=== PATIENT | female | born 1950 | race Caucasian/White ===

== ENCOUNTER 2019-11-17 11:55 | Inpatient (IN) | payer MEDICARE, OTHER ==
[~2019-11-17] VITALS: Ht 157.5 cm; Wt 55.3 kg
[2019-11-17 12:28] LABS: BASOPHILS % (AUTO) 0.4 % (0.0-2.0); EOSINOPHILS # (AUTO) 0.1 K/uL (0.0-0.7); EOSINOPHILS % (AUTO) 2.4 % (0.0-7.0); HEMATOCRIT 38.1 % (31.2-41.9); HEMOGLOBIN 12.9 g/dL (10.9-14.3); LYMPHOCYTES # (AUTO) 2.4 K/uL (20.0-40.0); LYMPHOCYTES % (AUTO) 39.1 % (20.5-51.5); MEAN CORPUSCULAR HEMOGLOBIN 31.1 uug (24.7-32.8); MEAN CORPUSCULAR HGB CONC 34 g/dL (32.3-35.6); MONOCYTES # (AUTO) 0.7 K/uL (2.0-10.0); MONOCYTES % (AUTO) 11.3 % (0.0-11.0); NEUTROPHILS # (AUTO) 2.9 K/uL (1.8-8.9); NEUTROPHILS % (AUTO) 46.8 % (38.5-71.5); PLATELET COUNT (AUTO) 213 K/uL (179-408); RED BLOOD CELL COUNT(AUTO) 4.14 MIL/uL (3.63-4.92); WHITE BLOOD COUNT (AUTO) 6.1 K/uL (3.8-11.8)
[2019-11-17 12:38] LABS: CARBON DIOXIDE 29 mmol/L (21-32); CHLORIDE 103 mmol/L (98-107); CREATININE 0.6 mg/dL (0.6-1.3); GLUCOSE 75 mg/dL (74-106); POTASSIUM 4.5 mmol/L (3.5-5.1); UREA NITROGEN, BLOOD 25 mg/dL (7-18)
[2019-11-17 12:44] LABS: ALANINE AMINOTRANSFERASE 24 U/L (14-59); ALKALINE PHOSPHATASE 92 U/L (50-136); ASPARTATE AMINOTRANSFERASE 15 U/L (15-37); BILIRUBIN,DIRECT 0.1 mg/dL (0.0-0.2); BILIRUBIN,TOTAL 0.4 mg/dL (0.2-1.0); TOTAL PROTEIN, SERUM 7.1 g/dL (6.4-8.2)
[2019-11-17 12:47] LABS: ACETAMINOPHEN < 2.0 ug/mL (10-30)
[2019-11-17 12:48] LABS: ETHANOL < 3 MG/DL (0-0)
[2019-11-17] MEDS ORDERED: FERR325T24 PO (12:53)
[2019-11-17] MEDS ORDERED: QUET100T PO (12:53)
[2019-11-17] MEDS ORDERED: OXYB5TAB16 PO (12:53)
[2019-11-17] MEDS ORDERED: FAMO40TA7 PO (12:53)
[2019-11-17] MEDS ORDERED: MULT-213 PO (12:53)
[2019-11-17] MEDS ORDERED: LORA10TA7 PO (12:53)
[2019-11-17] MEDS ORDERED: LACT1CAP26 PO (12:53)
[2019-11-17] MEDS ORDERED: GLYC30DR4 OP (12:54)
[2019-11-17] MEDS ORDERED: QUET200T PO (12:54)
[2019-11-17] MEDS ORDERED: GEMF600T5 PO (12:54)
[2019-11-17] MEDS ORDERED: DIVA-76 PO (12:54)
[2019-11-17] MEDS ORDERED: CHOL200026 PO (12:54)
[2019-11-17] MEDS ORDERED: METO25TA6 PO (12:54)
[2019-11-17] MEDS ORDERED: GABA600T12 PO (12:54)
[2019-11-17] MEDS ORDERED: NICO-670 TD (12:54)
[2019-11-17] MEDS ORDERED: ACET1TAB12 PO (12:54)
[2019-11-17] MEDS ORDERED: ACET325T53 PO (12:54)
[2019-11-17 13:06] LABS: *BILIRUBIN,URIN NEGATIVE (NEGATIVE); *CLARITY,URINE CLOUDY (CLEAR); *COLOR,URINE YELLOW (YELLOW); *KETONES,URINE NEGATIVE (NEGATIVE); *UROBILINOGEN,URINE 0.2 E.U./dl (NORMAL); LEUKOCYTE ESTERASE ,URINE 2+ (NEGATIVE); NITRITE, URINE POSITIVE (NEGATIVE); UGLUCOSE NEGATIVE (NEGATIVE)
[2019-11-17 13:08] LABS: *BLOOD, URINE TRACE (NEGATIVE)
[2019-11-17] MEDS ORDERED: CEphaleXIN 500 MG CAPSULE ONE (13:13)
[2019-11-17 13:14] LABS: BACTERIA,URINE MANY /HPF (NONE SEEN); WBC,URINE TNTC /HPF (0-3)
[2019-11-17 13:15] LABS: *AMPHETAMINE, URINE NEGATIVE (NEGATIVE); *BARBITURATE, URINE NEGATIVE (NEGATIVE); *CANNABINOID, URINE NEGATIVE (NEGATIVE); *COCCAINE, URINE NEGATIVE (NEGATIVE); *OPIATE, URINE POSITIVE (NEGATIVE); *PHENCYCLIDINE SCREEN,URINE NEGATIVE (NEGATIVE); SQUAMOUS EPITHELIAL CELL,UR FEW /HPF (NONE SEEN)
[2019-11-17] MEDS ORDERED: CEphaleXIN 500 MG CAPSULE PO ONE (13:15)
[2019-11-17 13:30] VITALS: BP 95/67
[2019-11-17] MEDS ORDERED: MAGNESIUM HYDROXIDE 30 ML LIQUID UDC PO PRN (13:45)
[2019-11-17] MEDS ORDERED: MAG HYDROX/AL HYDROX/SIMETH 30 ML LIQUID UDC PO PRN (13:45)
[2019-11-17] MEDS ORDERED: BLOOD SUGAR DIAGNOSTIC 1 EACH STRIP VI ONE (13:45)
[2019-11-17] MEDS: ACETAMINOPHEN 325 MG TABLET PO PRN (15:00)
[2019-11-17] MEDS: LORAZEPAM 0.5 MG TABLET PO PRN (15:00)
[2019-11-17 16:13] VITALS: BP 115/69
[2019-11-17] MEDS: GEMFIBROZIL 600 MG TABLET PO SCH (16:24)
[2019-11-17] MEDS: GABAPENTIN 300 MG CAPSULE PO SCH (16:26)
[2019-11-17] MEDS: POLYVINYL ALCOHOL OPHT DROPS 15 ML BOTTLE EACHEYE SCH (16:26)
[2019-11-17] MEDS ORDERED: [UNRECOGNIZED DRUG - OTHER] PO SCH (17:00)
[2019-11-17] MEDS ORDERED: [UNRECOGNIZED DRUG - OTHER] OP SCH (17:00)
[2019-11-17] MEDS ORDERED: PROPYLENE GLYCOL OP SCH (17:00)
[2019-11-17] MEDS ORDERED: GLYCERIN OP SCH (17:00)
[2019-11-17] MEDS ORDERED: Medication Not On Formulary EA (Gabapentin 600 MG) PO SCH (17:00)
[2019-11-17] MEDS ORDERED: CHOLECALCIFEROL 1000 UNIT PO SCH (17:00)
[2019-11-17] MEDS: HALOPERIDOL 2 MG TABLET PO SCH (18:49)
[2019-11-17] MEDS: BENZTROPINE MESYLATE 0.5 MG TABLET PO SCH (18:49)
[2019-11-17] MEDS: DIVALPROEX 250 MG TABLET.DR PO SCH (18:49)
[2019-11-17 20:00] VITALS: BP 101/56
[2019-11-17] MEDS: METOPROLOL TARTRATE 25 MG TABLET PO SCH (21:00)
[2019-11-17] MEDS: CEphaleXIN 500 MG CAPSULE PO SCH (21:34)
[2019-11-18 07:30] VITALS: BP 110/65
[2019-11-18] MEDS: POLYVINYL ALCOHOL OPHT DROPS 15 ML BOTTLE EACHEYE SCH ×2 (08:25→16:31)
[2019-11-18] MEDS: DIVALPROEX 250 MG TABLET.DR PO SCH ×3 (08:25→16:31)
[2019-11-18] MEDS: HALOPERIDOL 2 MG TABLET PO SCH ×3 (08:26→16:31)
[2019-11-18] MEDS: OXYBUTYNIN CHLORIDE 5 MG TABLET PO SCH (08:26)
[2019-11-18] MEDS: BENZTROPINE MESYLATE 0.5 MG TABLET PO SCH ×3 (08:26→16:31)
[2019-11-18] MEDS: CEphaleXIN 500 MG CAPSULE PO SCH ×3 (08:26→22:30)
[2019-11-18] MEDS: GEMFIBROZIL 600 MG TABLET PO SCH ×2 (08:27→16:31)
[2019-11-18] MEDS: GABAPENTIN 300 MG CAPSULE PO SCH ×3 (08:27→16:31)
[2019-11-18] MEDS: FAMOTIDINE 20 MG TABLET PO SCH (08:32)
[2019-11-18] MEDS: METOPROLOL TARTRATE 25 MG TABLET PO SCH ×3 (08:32→22:30)
[2019-11-18] MEDS: FERROUS SULFATE 325 MG TABEC PO SCH (08:32)
[2019-11-18] MEDS: MULTIVIT, IRON, MIN NO. 8, FA TABLET PO SCH (08:33)
[2019-11-18] MEDS: CHOLECALCIFEROL 1,000 UNIT TABLET PO SCH (08:33)
[2019-11-18] MEDS: NICOTINE 21 MG/24HR PATCH TD SCH (08:35)
[2019-11-18] MEDS ORDERED: Medication Not On Formulary EA (Famotidine 40 MG) PO SCH (09:00)
[2019-11-18] MEDS ORDERED: Medication Not On Formulary EA (Multivitamins W-Minerals (Multivitamin With Minerals) 1 PO SCH (09:00)
[2019-11-18 16:00] VITALS: BP 121/57
[2019-11-18 20:50] VITALS: BP 119/62
[2019-11-18] MEDS: TEMAZEPAM 7.5 MG CAPSULE PO PRN (23:33)
[2019-11-19 07:30] VITALS: BP 100/49
[2019-11-19] MEDS: GEMFIBROZIL 600 MG TABLET PO SCH ×2 (08:01→16:40)
[2019-11-19] MEDS: MULTIVIT, IRON, MIN NO. 8, FA TABLET PO SCH (08:01)
[2019-11-19] MEDS: OXYBUTYNIN CHLORIDE 5 MG TABLET PO SCH (08:01)
[2019-11-19] MEDS: DIVALPROEX 250 MG TABLET.DR PO SCH ×3 (08:01→16:41)
[2019-11-19] MEDS: POLYVINYL ALCOHOL OPHT DROPS 15 ML BOTTLE EACHEYE SCH ×2 (08:01→16:40)
[2019-11-19] MEDS: GABAPENTIN 300 MG CAPSULE PO SCH ×3 (08:01→16:38)
[2019-11-19] MEDS: FAMOTIDINE 20 MG TABLET PO SCH (08:01)
[2019-11-19] MEDS: FERROUS SULFATE 325 MG TABEC PO SCH (08:02)
[2019-11-19] MEDS: BENZTROPINE MESYLATE 0.5 MG TABLET PO SCH ×3 (08:02→16:39)
[2019-11-19] MEDS: HALOPERIDOL 2 MG TABLET PO SCH ×2 (08:02→12:00)
[2019-11-19] MEDS: NICOTINE 21 MG/24HR PATCH TD SCH (08:02)
[2019-11-19] MEDS: CHOLECALCIFEROL 1,000 UNIT TABLET PO SCH (08:02)
[2019-11-19 15:09] VITALS: BP 93/49
[2019-11-19] MEDS: HALOPERIDOL 1 MG TABLET PO SCH (16:42)
[2019-11-19] MEDS ORDERED: GABAPENTIN 300 MG CAPSULE PO SCH (17:00)
[2019-11-19] MEDS: CEphaleXIN 500 MG CAPSULE PO SCH (20:02)
[2019-11-19] MEDS: METOPROLOL TARTRATE 25 MG TABLET PO SCH (20:04)
[2019-11-19] MEDS: ACETAMINOPHEN/CODEINE 300-30 MG TABLET PO PRN (23:10)
[2019-11-20 07:30] VITALS: BP 142/72
[2019-11-20] MEDS: POLYVINYL ALCOHOL OPHT DROPS 15 ML BOTTLE EACHEYE SCH ×2 (08:27→16:43)
[2019-11-20] MEDS: GEMFIBROZIL 600 MG TABLET PO SCH ×2 (08:28→16:43)
[2019-11-20] MEDS: BENZTROPINE MESYLATE 0.5 MG TABLET PO SCH ×3 (08:28→16:43)
[2019-11-20] MEDS: HALOPERIDOL 1 MG TABLET PO SCH ×3 (08:28→16:43)
[2019-11-20] MEDS: DIVALPROEX 250 MG TABLET.DR PO SCH ×2 (08:28→16:43)
[2019-11-20] MEDS: CEphaleXIN 500 MG CAPSULE PO SCH ×2 (08:28→20:07)
[2019-11-20] MEDS: OXYBUTYNIN CHLORIDE 5 MG TABLET PO SCH (08:28)
[2019-11-20] MEDS: FERROUS SULFATE 325 MG TABEC PO SCH (08:28)
[2019-11-20] MEDS: METOPROLOL TARTRATE 25 MG TABLET PO SCH ×2 (08:28→20:06)
[2019-11-20] MEDS: NICOTINE 21 MG/24HR PATCH TD SCH (08:29)
[2019-11-20] MEDS: MULTIVIT, IRON, MIN NO. 8, FA TABLET PO SCH (08:29)
[2019-11-20] MEDS: FAMOTIDINE 20 MG TABLET PO SCH (08:29)
[2019-11-20] MEDS: GABAPENTIN 300 MG CAPSULE PO SCH ×2 (08:29→16:43)
[2019-11-20] MEDS: CHOLECALCIFEROL 1,000 UNIT TABLET PO SCH (08:29)
[2019-11-20 15:26] VITALS: BP 163/61
[2019-11-20] MEDS: ACETAMINOPHEN/CODEINE 300-30 MG TABLET PO PRN ×2 (15:31→22:36)
[2019-11-20 20:03] VITALS: BP 109/53
[2019-11-20] MEDS: TEMAZEPAM 7.5 MG CAPSULE PO PRN (22:35)
[2019-11-21] MEDS: ACETAMINOPHEN/CODEINE 300-30 MG TABLET PO PRN ×3 (04:36→20:08)
[2019-11-21 08:00] VITALS: BP 118/67
[2019-11-21] MEDS: POLYVINYL ALCOHOL OPHT DROPS 15 ML BOTTLE EACHEYE SCH ×2 (09:09→16:57)
[2019-11-21] MEDS: GABAPENTIN 300 MG CAPSULE PO SCH ×2 (09:10→16:44)
[2019-11-21] MEDS: BENZTROPINE MESYLATE 0.5 MG TABLET PO SCH ×3 (09:10→16:43)
[2019-11-21] MEDS: CEphaleXIN 500 MG CAPSULE PO SCH ×2 (09:10→20:07)
[2019-11-21] MEDS: GEMFIBROZIL 600 MG TABLET PO SCH ×3 (09:10→17:00)
[2019-11-21] MEDS: OXYBUTYNIN CHLORIDE 5 MG TABLET PO SCH (09:10)
[2019-11-21] MEDS: FAMOTIDINE 20 MG TABLET PO SCH (09:10)
[2019-11-21] MEDS: DIVALPROEX 250 MG TABLET.DR PO SCH ×2 (09:10→16:44)
[2019-11-21] MEDS: FERROUS SULFATE 325 MG TABEC PO SCH (09:10)
[2019-11-21] MEDS: HALOPERIDOL 1 MG TABLET PO SCH ×2 (09:10→12:00)
[2019-11-21] MEDS: METOPROLOL TARTRATE 25 MG TABLET PO SCH ×2 (09:10→20:07)
[2019-11-21] MEDS: MULTIVIT, IRON, MIN NO. 8, FA TABLET PO SCH (09:11)
[2019-11-21] MEDS: NICOTINE 21 MG/24HR PATCH TD SCH (09:11)
[2019-11-21] MEDS: CHOLECALCIFEROL 1,000 UNIT TABLET PO SCH (09:11)
[2019-11-21] MEDS: LORAZEPAM 0.5 MG TABLET PO PRN (11:06)
[2019-11-21 15:00] VITALS: BP 108/87
[2019-11-21] MEDS: HALOPERIDOL 2 MG TABLET PO SCH (16:44)
[2019-11-21 21:54] VITALS: BP 126/66
[2019-11-22] MEDS: ACETAMINOPHEN/CODEINE 300-30 MG TABLET PO PRN ×2 (02:25→11:25)
[2019-11-22 07:30] VITALS: BP 107/55
[2019-11-22 08:00] LABS: BASOPHILS % (AUTO) 0.4 % (0.0-2.0); EOSINOPHILS # (AUTO) 0.2 K/uL (0.0-0.7); EOSINOPHILS % (AUTO) 3.1 % (0.0-7.0); HEMATOCRIT 39.4 % (31.2-41.9); HEMOGLOBIN 13.4 g/dL (10.9-14.3); LYMPHOCYTES # (AUTO) 1.6 K/uL (20.0-40.0); LYMPHOCYTES % (AUTO) 27.7 % (20.5-51.5); MEAN CORPUSCULAR HEMOGLOBIN 30.7 uug (24.7-32.8); MEAN CORPUSCULAR HGB CONC 34 g/dL (32.3-35.6); MEAN CORPUSCULAR VOLUME 90.4 fL (75.5-95.3); MONOCYTES # (AUTO) 0.8 K/uL (2.0-10.0); MONOCYTES % (AUTO) 13.3 % (0.0-11.0); NEUTROPHILS # (AUTO) 3.2 K/uL (1.8-8.9); NEUTROPHILS % (AUTO) 55.5 % (38.5-71.5); PLATELET COUNT (AUTO) 260 K/uL (179-408); RED BLOOD CELL COUNT(AUTO) 4.36 MIL/uL (3.63-4.92); WHITE BLOOD COUNT (AUTO) 5.8 K/uL (3.8-11.8)
[2019-11-22 08:14] LABS: CREATININE 0.6 mg/dL (0.6-1.3); MAGNESIUM 1.9 mg/dL (1.8-2.4); PHOSPHOROUS 3.7 mg/dL (2.5-4.9); POTASSIUM 3.9 mmol/L (3.5-5.1)
[2019-11-22] MEDS: BENZTROPINE MESYLATE 0.5 MG TABLET PO SCH ×3 (08:27→16:32)
[2019-11-22] MEDS: FERROUS SULFATE 325 MG TABEC PO SCH (08:27)
[2019-11-22] MEDS: MULTIVIT, IRON, MIN NO. 8, FA TABLET PO SCH (08:27)
[2019-11-22] MEDS: POLYVINYL ALCOHOL OPHT DROPS 15 ML BOTTLE EACHEYE SCH ×2 (08:27→16:32)
[2019-11-22] MEDS: CEphaleXIN 500 MG CAPSULE PO SCH ×2 (08:27→21:48)
[2019-11-22] MEDS: DIVALPROEX 250 MG TABLET.DR PO SCH ×2 (08:27→16:33)
[2019-11-22] MEDS: FAMOTIDINE 20 MG TABLET PO SCH (08:27)
[2019-11-22] MEDS: CHOLECALCIFEROL 1,000 UNIT TABLET PO SCH (08:27)
[2019-11-22] MEDS: OXYBUTYNIN CHLORIDE 5 MG TABLET PO SCH (08:28)
[2019-11-22] MEDS: GEMFIBROZIL 600 MG TABLET PO SCH ×2 (08:28→16:32)
[2019-11-22] MEDS: GABAPENTIN 300 MG CAPSULE PO SCH ×2 (08:28→16:32)
[2019-11-22] MEDS: METOPROLOL TARTRATE 25 MG TABLET PO SCH ×2 (08:28→20:16)
[2019-11-22] MEDS: NICOTINE 21 MG/24HR PATCH TD SCH (08:28)
[2019-11-22] MEDS: HALOPERIDOL 2 MG TABLET PO SCH ×3 (08:28→16:32)
[2019-11-22] MEDS: LORAZEPAM 0.5 MG TABLET PO PRN (14:56)
[2019-11-22 16:01] VITALS: BP 103/52
[2019-11-22 20:00] VITALS: BP 107/67
[2019-11-22] MEDS: ATORVASTATIN 10 MG TABLET PO SCH (21:48)
[2019-11-23] MEDS: ACETAMINOPHEN/CODEINE 300-30 MG TABLET PO PRN ×2 (00:41→10:00)
[2019-11-23 07:30] VITALS: BP 100/59
[2019-11-23] MEDS: BENZTROPINE MESYLATE 0.5 MG TABLET PO SCH ×3 (08:02→16:33)
[2019-11-23] MEDS: DIVALPROEX 250 MG TABLET.DR PO SCH ×3 (08:02→16:33)
[2019-11-23] MEDS: CEphaleXIN 500 MG CAPSULE PO SCH ×2 (08:02→20:36)
[2019-11-23] MEDS: FERROUS SULFATE 325 MG TABEC PO SCH (08:02)
[2019-11-23] MEDS: NICOTINE 21 MG/24HR PATCH TD SCH (08:02)
[2019-11-23] MEDS: HALOPERIDOL 2 MG TABLET PO SCH ×3 (08:02→16:33)
[2019-11-23] MEDS: GABAPENTIN 300 MG CAPSULE PO SCH ×2 (08:02→16:33)
[2019-11-23] MEDS: POLYVINYL ALCOHOL OPHT DROPS 15 ML BOTTLE EACHEYE SCH ×2 (08:02→16:33)
[2019-11-23] MEDS: FAMOTIDINE 20 MG TABLET PO SCH (08:03)
[2019-11-23] MEDS: OXYBUTYNIN CHLORIDE 5 MG TABLET PO SCH (08:03)
[2019-11-23] MEDS: CHOLECALCIFEROL 1,000 UNIT TABLET PO SCH (08:03)
[2019-11-23] MEDS: GEMFIBROZIL 600 MG TABLET PO SCH ×2 (08:03→16:33)
[2019-11-23] MEDS: MULTIVIT, IRON, MIN NO. 8, FA TABLET PO SCH (08:03)
[2019-11-23] MEDS: METOPROLOL TARTRATE 25 MG TABLET PO SCH ×2 (08:08→20:45)
[2019-11-23] MEDS: LORAZEPAM 0.5 MG TABLET PO PRN (14:43)
[2019-11-23 16:00] VITALS: BP 111/61
[2019-11-23] MEDS: ATORVASTATIN 10 MG TABLET PO SCH (20:36)
[2019-11-23 21:29] VITALS: BP 102/54
[2019-11-24 07:30] VITALS: BP 104/50
[2019-11-24] MEDS: GABAPENTIN 300 MG CAPSULE PO SCH ×2 (08:40→16:55)
[2019-11-24] MEDS: POLYVINYL ALCOHOL OPHT DROPS 15 ML BOTTLE EACHEYE SCH ×2 (08:40→16:55)
[2019-11-24] MEDS: CHOLECALCIFEROL 1,000 UNIT TABLET PO SCH (08:40)
[2019-11-24] MEDS: OXYBUTYNIN CHLORIDE 5 MG TABLET PO SCH (08:40)
[2019-11-24] MEDS: BENZTROPINE MESYLATE 0.5 MG TABLET PO SCH ×3 (08:41→16:55)
[2019-11-24] MEDS: FERROUS SULFATE 325 MG TABEC PO SCH (08:41)
[2019-11-24] MEDS: HALOPERIDOL 2 MG TABLET PO SCH ×3 (08:41→16:55)
[2019-11-24] MEDS: DIVALPROEX 250 MG TABLET.DR PO SCH ×3 (08:41→16:55)
[2019-11-24] MEDS: CEphaleXIN 500 MG CAPSULE PO SCH (08:41)
[2019-11-24] MEDS: GEMFIBROZIL 600 MG TABLET PO SCH ×2 (08:42→16:55)
[2019-11-24] MEDS: MULTIVIT, IRON, MIN NO. 8, FA TABLET PO SCH (08:42)
[2019-11-24] MEDS: FAMOTIDINE 20 MG TABLET PO SCH (08:42)
[2019-11-24] MEDS: METOPROLOL TARTRATE 25 MG TABLET PO SCH ×2 (08:43→20:33)
[2019-11-24] MEDS: NICOTINE 21 MG/24HR PATCH TD SCH (08:51)
[2019-11-24 16:58] VITALS: BP 109/53
[2019-11-24 20:00] VITALS: BP 101/50
[2019-11-24] MEDS: ATORVASTATIN 10 MG TABLET PO SCH (20:35)
[2019-11-25] MEDS: FERROUS SULFATE 325 MG TABEC PO SCH (10:34)
[2019-11-25] MEDS: CHOLECALCIFEROL 1,000 UNIT TABLET PO SCH (10:35)
[2019-11-25] MEDS: GABAPENTIN 300 MG CAPSULE PO SCH ×2 (10:35→17:10)
[2019-11-25] MEDS: MULTIVIT, IRON, MIN NO. 8, FA TABLET PO SCH (10:35)
[2019-11-25] MEDS: BENZTROPINE MESYLATE 0.5 MG TABLET PO SCH ×3 (10:35→17:10)
[2019-11-25] MEDS: HALOPERIDOL 2 MG TABLET PO SCH ×3 (10:35→17:10)
[2019-11-25] MEDS: METOPROLOL TARTRATE 25 MG TABLET PO SCH ×2 (10:35→20:45)
[2019-11-25] MEDS: OXYBUTYNIN CHLORIDE 5 MG TABLET PO SCH (10:36)
[2019-11-25] MEDS: GEMFIBROZIL 600 MG TABLET PO SCH ×2 (10:36→17:10)
[2019-11-25] MEDS: FAMOTIDINE 20 MG TABLET PO SCH (10:36)
[2019-11-25] MEDS: POLYVINYL ALCOHOL OPHT DROPS 15 ML BOTTLE EACHEYE SCH ×2 (10:36→17:09)
[2019-11-25] MEDS: DIVALPROEX 250 MG TABLET.DR PO SCH ×3 (10:36→17:10)
[2019-11-25] MEDS: NICOTINE 21 MG/24HR PATCH TD SCH (10:37)
[2019-11-25 10:48] VITALS: BP 144/76
[2019-11-25] MEDS: ACETAMINOPHEN 325 MG TABLET PO PRN (17:09)
[2019-11-25 17:23] VITALS: BP 111/75
[2019-11-25 20:14] VITALS: BP 109/50
[2019-11-25] MEDS: ATORVASTATIN 10 MG TABLET PO SCH (20:44)
[2019-11-26 07:30] VITALS: BP 128/67
[2019-11-26] MEDS: FAMOTIDINE 20 MG TABLET PO SCH (10:09)
[2019-11-26] MEDS: CHOLECALCIFEROL 1,000 UNIT TABLET PO SCH (10:10)
[2019-11-26] MEDS: METOPROLOL TARTRATE 25 MG TABLET PO SCH ×2 (10:10→21:00)
[2019-11-26] MEDS: GABAPENTIN 300 MG CAPSULE PO SCH ×2 (10:10→17:47)
[2019-11-26] MEDS: HALOPERIDOL 2 MG TABLET PO SCH ×3 (10:10→17:47)
[2019-11-26] MEDS: FERROUS SULFATE 325 MG TABEC PO SCH (10:11)
[2019-11-26] MEDS: NICOTINE 21 MG/24HR PATCH TD SCH (10:11)
[2019-11-26] MEDS: MULTIVIT, IRON, MIN NO. 8, FA TABLET PO SCH (10:11)
[2019-11-26] MEDS: DIVALPROEX 250 MG TABLET.DR PO SCH ×3 (10:11→17:47)
[2019-11-26] MEDS: GEMFIBROZIL 600 MG TABLET PO SCH ×2 (10:11→17:48)
[2019-11-26] MEDS: OXYBUTYNIN CHLORIDE 5 MG TABLET PO SCH (10:11)
[2019-11-26] MEDS: BENZTROPINE MESYLATE 0.5 MG TABLET PO SCH ×3 (10:11→17:47)
[2019-11-26] MEDS: POLYVINYL ALCOHOL OPHT DROPS 15 ML BOTTLE EACHEYE SCH ×2 (10:12→17:49)
[2019-11-26 16:00] VITALS: BP 120/61
[2019-11-26] MEDS ORDERED: DIVALPROEX 250 MG TABLET.DR PO SCH (18:15)
[2019-11-26 20:25] VITALS: BP 106/49
[2019-11-26] MEDS: ATORVASTATIN 10 MG TABLET PO SCH (21:06)
[2019-11-27 07:30] VITALS: BP 112/58
[2019-11-27] MEDS: MULTIVIT, IRON, MIN NO. 8, FA TABLET PO SCH (08:24)
[2019-11-27] MEDS: BENZTROPINE MESYLATE 0.5 MG TABLET PO SCH ×3 (08:24→17:09)
[2019-11-27] MEDS: CHOLECALCIFEROL 1,000 UNIT TABLET PO SCH (08:24)
[2019-11-27] MEDS: FERROUS SULFATE 325 MG TABEC PO SCH (08:24)
[2019-11-27] MEDS: FAMOTIDINE 20 MG TABLET PO SCH (08:24)
[2019-11-27] MEDS: GEMFIBROZIL 600 MG TABLET PO SCH ×2 (08:24→17:09)
[2019-11-27] MEDS: HALOPERIDOL 2 MG TABLET PO SCH ×3 (08:25→17:08)
[2019-11-27] MEDS: GABAPENTIN 300 MG CAPSULE PO SCH ×2 (08:25→17:09)
[2019-11-27] MEDS: OXYBUTYNIN CHLORIDE 5 MG TABLET PO SCH (08:25)
[2019-11-27] MEDS: METOPROLOL TARTRATE 25 MG TABLET PO SCH ×2 (08:25→21:49)
[2019-11-27] MEDS: POLYVINYL ALCOHOL OPHT DROPS 15 ML BOTTLE EACHEYE SCH ×2 (08:26→17:00)
[2019-11-27] MEDS: NICOTINE 21 MG/24HR PATCH TD SCH (08:34)
[2019-11-27 15:32] VITALS: BP 114/69
[2019-11-27] MEDS: DIVALPROEX 500 MG TABLET.DR PO SCH (18:07)
[2019-11-27 20:17] VITALS: BP 117/63
[2019-11-27] MEDS: ATORVASTATIN 10 MG TABLET PO SCH (21:49)
[2019-11-28] MEDS: ACETAMINOPHEN/CODEINE 300-30 MG TABLET PO PRN (03:05)
[2019-11-28 07:40] VITALS: BP 112/66
[2019-11-28] MEDS: HALOPERIDOL 2 MG TABLET PO SCH ×2 (08:19→12:26)
[2019-11-28] MEDS: DIVALPROEX 500 MG TABLET.DR PO SCH (08:19)
[2019-11-28] MEDS: OXYBUTYNIN CHLORIDE 5 MG TABLET PO SCH (08:19)
[2019-11-28] MEDS: GABAPENTIN 300 MG CAPSULE PO SCH (08:19)
[2019-11-28] MEDS: BENZTROPINE MESYLATE 0.5 MG TABLET PO SCH ×2 (08:19→12:26)
[2019-11-28 08:20] VITALS: BP 112/66
[2019-11-28] MEDS: FAMOTIDINE 20 MG TABLET PO SCH (08:20)
[2019-11-28] MEDS: CHOLECALCIFEROL 1,000 UNIT TABLET PO SCH (08:20)
[2019-11-28] MEDS: GEMFIBROZIL 600 MG TABLET PO SCH (08:20)
[2019-11-28] MEDS: METOPROLOL TARTRATE 25 MG TABLET PO SCH (08:20)
[2019-11-28] MEDS: MULTIVIT, IRON, MIN NO. 8, FA TABLET PO SCH (08:22)
[2019-11-28] MEDS: NICOTINE 21 MG/24HR PATCH TD SCH (08:22)
[2019-11-28] MEDS: FERROUS SULFATE 325 MG TABEC PO SCH (08:25)
[2019-11-28] MEDS: POLYVINYL ALCOHOL OPHT DROPS 15 ML BOTTLE EACHEYE SCH (08:29)
== END 2019-11-28 15:00 | DRG 885 ==
LOC: ER 11:55 → GPS 13:17
PROVIDERS: ADMIT Psychiatry & Neurology Psychiatry; ATTEND Nurse Practitioner Acute Care
DX: F25.9 Schizoaffective disorder, unspecified (principal); N17.0 Acute kidney failure with tubular necrosis; N39.0 Urinary tract infection, site not specified; B96.20 Unspecified Escherichia coli [E. coli] as the cause of diseases classified elsewhere; Z87.11 Personal history of peptic ulcer disease; F43.10 Post-traumatic stress disorder, unspecified; E78.5 Hyperlipidemia, unspecified; F41.9 Anxiety disorder, unspecified; Z79.899 Other long term (current) drug therapy
CPT/HCPCS: 36415; 71045; 80164; 80307; 83735; 84100; 84443; 85025; 87077; 87086; 93005; A4663; G0480; G0480-TC; J3490